=== PATIENT | female | born 1960 | race Caucasian/White ===

== ENCOUNTER 2016-12-31 13:01 | Emergency (ER) | payer SELFPAY ==
[~2016-12-31] VITALS: Ht 157.5 cm; Wt 61.4 kg
[2016-12-31 13:29] VITALS: BP 133/77; PULSE 79; RESP 15; O2SAT 99
== END 2016-12-31 14:36 | disposition left against medical advice (07) ==
LOC: SED 13:01
DX: M79.641 Pain in right hand (principal); Z53.21 Procedure and treatment not carried out due to patient leaving prior to being seen by health care provider